=== PATIENT | male | born 1980 | race Caucasian/White ===

== ENCOUNTER 2017-01-17 20:44 | Emergency (ER) | payer OTHER ==
[~2017-01-17] VITALS: Ht 167.6 cm; Wt 98.7 kg
[2017-01-17] MEDS ORDERED: ASPIRIN 81 MG TABLET CHEW PO ONE (21:00)
[2017-01-17 21:31] LABS: BLOOD UREA NITROGEN 18 mg/dL (7-18)
[2017-01-17 21:36] LABS: IS PT STATUS REG ER OR PRE ER? YES
[2017-01-17] MEDS ORDERED: ASPIRIN 81 MG TABLET CHEW ONE (21:56)
[2017-01-17 22:10] VITALS: BP 115/64
== END 2017-01-17 22:12 | disposition home or self-care (01) ==
LOC: ED 22:06
DX: R07.89 Other chest pain (principal)
CPT/HCPCS: 36415; 71010; 80048; 82040; 84484; 85025; 93005; 99285

== ENCOUNTER 2017-04-17 10:18 | Emergency (ER) | payer OTHER ==
[~2017-04-17] VITALS: Ht 167.6 cm; Wt 100.0 kg
[2017-04-17] MEDS ORDERED: KETOROLAC 30 MG/1 ML IM ONE (11:30)
[2017-04-17] MEDS ORDERED: KETOROLAC 30 MG/1 ML ONE (11:36)
[2017-04-17 11:41] LABS: HEMATOCRIT 48.8 % (39.2-51.8); HEMOGLOBIN 16.5 g/dL (13.7-18.0); WHITE BLOOD COUNT 6.9 x10^3/uL (3.4-10)
[2017-04-17 11:49] LABS: ASPARTATE AMINO TRANSFERASE 77 U/L (15-37); BLOOD UREA NITROGEN 15 mg/dL (7-18)
[2017-04-17 13:38] VITALS: BP 103/49
== END 2017-04-17 13:41 | disposition home or self-care (01) ==
LOC: ED 10:49
DX: M51.26 Other intervertebral disc displacement, lumbar region (principal)
CPT/HCPCS: 36415; 72110; 74000; 80053; 81003; 85025; 96372; 99285; J1885

== ENCOUNTER 2017-11-09 18:17 | Emergency (ER) | payer OTHER ==
[~2017-11-09] VITALS: Ht 167.6 cm; Wt 96.8 kg
[2017-11-09 18:20] VITALS: BP 121/80
[2017-11-09] MEDS ORDERED: LIDOCAINE-MPF 1%, 5ML INFIL ONE (18:30)
== END 2017-11-09 19:06 | disposition home or self-care (01) ==
LOC: ED 18:25
DX: L02.31 Cutaneous abscess of buttock (principal); K64.4 Residual hemorrhoidal skin tags
CPT/HCPCS: 99283

== ENCOUNTER 2017-12-13 13:42 | Emergency (ER) | payer OTHER ==
[~2017-12-13] VITALS: Ht 170.2 cm; Wt 97.7 kg
[2017-12-13] MEDS ORDERED: SODIUM CHLORIDE FLUSH 10ML SYR IVF ONE (14:30)
[2017-12-13] MEDS ORDERED: MORPHINE SULFATE 4 MG/ML, 1ML IVPush ONE (14:30)
[2017-12-13] MEDS ORDERED: SODIUM CHLORIDE 0.9% 1,000ML IVBOLUS ONE (14:30)
[2017-12-13] MEDS ORDERED: MORPHINE SULFATE 4 MG/ML, 1ML ONE (14:32)
[2017-12-13 14:33] LABS: BASOPHILS # (AUTO) 0.03 x10^3/uL (0-0.1); BASOPHILS % (AUTO) 0 % (0-1); EOSINOPHILS # (AUTO) 0.16 x10^3/uL (0-0.4); EOSINOPHILS % (AUTO) 2 % (1-7); LYMPHOCYTES # (AUTO) 1.94 x10^3/uL (1-3.4); LYMPHOCYTES % (AUTO) 24 % (22-44); MD NO; MEAN CORPUSCULAR HEMOGLOBIN 28.1 pg (27.5-34.5); MEAN CORPUSCULAR HGB CONC 33.5 g/dL (33.2-36.2); MEAN CORPUSCULAR VOLUME 83.8 fL (81-97); MEAN PLATELET VOLUME 10.3 fL (7.4-10.4); MONOCYTES # (AUTO) 0.49 x10^3/uL (0.2-0.8); MONOCYTES % (AUTO) 6 % (2-9); NEUTROPHILS # (AUTO) 5.63 x10^3/uL (1.8-6.8); NEUTROPHILS % (AUTO) 68 % (42-75); PLATELET COUNT 238 x10^3/uL (130-400); RED BLOOD COUNT 5.44 x10^6/uL (4.38-5.82); RED CELL DISTRIBUTION WIDTH 13.1 % (9.4-14.8)
[2017-12-13 14:38] LABS: INTERNATIONAL NORMALIZED RATIO 1.1 (0.93-1.1); PROTHROMBIN TIME 11.3 Seconds (9.6-11.5)
[2017-12-13 14:40] LABS: ALBUMIN 3.8 g/dL (3.4-5.0); ANION GAP 4 mmol/L (5-15); CALCIUM 8.9 mg/dL (8.5-10.1); CHLORIDE 108 mmol/L (98-107); CREATININE 0.95 mg/dL (0.7-1.3)
[2017-12-13] MEDS ORDERED: KETOROLAC 30 MG/1 ML ONE (15:53)
[2017-12-13] MEDS ORDERED: KETOROLAC 30 MG/1 ML IVPush ONE (16:00)
[2017-12-13 16:48] VITALS: BP 112/67
== END 2017-12-13 16:51 | disposition home or self-care (01) ==
LOC: ED 16:45
DX: R51 Headache (principal); Z86.73 Personal history of transient ischemic attack (TIA), and cerebral infarction without residual deficits
CPT/HCPCS: 36415; 70450; 80048; 82040; 85025; 85610; 96374; 99285; J7030

== ENCOUNTER 2018-08-01 21:17 | Emergency (ER) | payer OTHER ==
[~2018-08-01] VITALS: Ht 170.2 cm; Wt 97.4 kg
[2018-08-01 21:28] VITALS: BP 110/69
--- NOTE | 2018-08-01 21:35 | NUR ---
pt presents to ed with c/o body aches, cough and bilateral ear ache x 2 days. pt a&o, resps even and unlabored. call light in reach. awaiting orders and dispo.
[2018-08-01] MEDS ORDERED: IBUPROFEN 800 MG TABLET PO STA (22:14)
[2018-08-01] MEDS ORDERED: IBUPROFEN 200 MG TABLET ONE (22:49)
--- NOTE | 2018-08-01 22:55 | NUR ---
pt medicated per emar, tolerated well. pt a&o, resps even and unlabored. pt given dc instructions, pt amb to dc desk with steady gait, nadn at dc.
== END 2018-08-01 22:56 | disposition home or self-care (01) ==
LOC: ED 22:46
DX: B34.9 Viral infection, unspecified (principal)
CPT/HCPCS: 99282

== ENCOUNTER 2019-01-27 12:41 | Outpatient (CLI) | payer OTHER | END 2019-01-27 23:59 | disposition home or self-care (01) | LOC: LAB 12:41 | PROVIDERS: ATTEND Nurse Practitioner Family | DX: R94.5 Abnormal results of liver function studies (principal) | CPT/HCPCS: 36415; 84450; 84460 ==

== ENCOUNTER 2019-07-23 12:12 | Emergency (ER) | payer OTHER ==
[~2019-07-23] VITALS: Ht 170.2 cm; Wt 100.2 kg
[2019-07-23 13:01] LABS: BASOPHILS # (AUTO) 0.02 x10^3/uL (0-0.1); BASOPHILS % (AUTO) 0 % (0-1); EOSINOPHILS # (AUTO) 0.02 x10^3/uL (0-0.4); EOSINOPHILS % (AUTO) 0 % (1-7); LYMPHOCYTES # (AUTO) 1.45 x10^3/uL (1-3.4); LYMPHOCYTES % (AUTO) 9 % (22-44); MD NO; MEAN CORPUSCULAR HGB CONC 33.3 g/dL (33.2-36.2); MEAN CORPUSCULAR VOLUME 84.3 fL (81-97); MEAN PLATELET VOLUME 9.3 fL (7.4-10.4); MONOCYTES # (AUTO) 0.75 x10^3/uL (0.2-0.8); MONOCYTES % (AUTO) 5 % (2-9); NEUTROPHILS # (AUTO) 13.66 x10^3/uL (1.8-6.8); NEUTROPHILS % (AUTO) 86 % (42-75); PLATELET COUNT 231 x10^3/uL (130-400); RED BLOOD COUNT 5.65 x10^6/uL (4.38-5.82); RED CELL DISTRIBUTION WIDTH 13.3 % (9.4-14.8)
[2019-07-23 13:12] LABS: ALANINE AMINOTRANSFERASE 146 U/L (12-78); ALBUMIN 4.2 g/dL (3.4-5.0); ANION GAP 7 mmol/L (5-15); CHLORIDE 102 mmol/L (98-107); CREATININE 1.06 mg/dL (0.7-1.3)
[2019-07-23 13:15] LABS: ALKALINE PHOSPHATASE 112 U/L (45-117); BILIRUBIN,TOTAL 1.1 mg/dL (0.2-1.0); TOTAL PROTEIN 8.8 g/dL (6.4-8.2)
--- NOTE | 2019-07-23 13:20 | NUR ---
THIS IS A 38 YO M W/ C/O URINARY FREQUENCY AND PAIN WELL TESTICULAR PAIN 11/25 SINCE SUNDAY. PT REPORTS LIFTING SOMETHING HEAVY AT HIS HOUSE WHEN IT FELT LIKE HE PULLED SOMETHING. DENIES ABD PAIN. VS STABLE. NADN. CALL LIGHT IN REACH. DENIES FURTHER NEEDS AT THIS TIME.
--- NOTE | 2019-07-23 13:21 | NUR ---
URINE COLLECTED AND SENT TO LAB.
--- NOTE | 2019-07-23 13:38 | NUR ---
PT TO RAD.
--- NOTE | 2019-07-23 14:06 | NUR ---
FOLLOW UP CALL PLACED TO LAB IN REGARDS TO DELAY IN URINE RESULTS. TECH STATES THAT URINE IS PROCESSING NOW. MD TO BE UPDATED.
[2019-07-23 14:09] LABS: CULTURE INDICATED? YES; MICROSCOPIC INDICATED
--- NOTE | 2019-07-23 14:16 | NUR ---
ALL TESTS RESULTED AT THIS TIME. PT IS UP FOR RECHECK.
[2019-07-23] MEDS ORDERED: SODIUM CHLORIDE FLUSH 10ML SYR IVF ONE (14:30)
--- NOTE | 2019-07-23 14:33 | NUR ---
PIV STARTED. PT UPDATED ON POC FOR CT.
--- NOTE | 2019-07-23 14:58 | NUR ---
PT TO RAD.
--- NOTE | 2019-07-23 15:03 | NUR ---
CT DELAYED DUE TO CODE NEURO IN DEPT. NO CT SCANNER AVAILABLE AT THIS TIME.
--- NOTE | 2019-07-23 15:17 | NUR ---
PT TO RAD.
[2019-07-23] MEDS ORDERED: OMNIPAQUE 350 MG/ML, 100ML BOTTLE ONE (15:32)
--- NOTE | 2019-07-23 15:41 | NUR ---
CT RESULTED. PT IS UP FOR RECHECK AT THIS TIME.
[2019-07-23] MEDS ORDERED: CEFTRIAXONE 1,000 MG IM ONE (16:00)
[2019-07-23] MEDS ORDERED: CEFTRIAXONE 1,000 MG ONE (16:17)
[2019-07-23] MEDS ORDERED: LIDOCAINE-MPF 1%, 5ML ONE (16:18)
[2019-07-23] MEDS ORDERED: ACETAMINOPHEN 500 MG TABLET ONE (16:27)
[2019-07-23 16:28] VITALS: BP 107/66
[2019-07-23] MEDS ORDERED: ACETAMINOPHEN 500 MG TABLET PO ONE (16:30)
--- NOTE | 2019-07-23 16:33 | NUR ---
ED PROVIDER UPDATED ON PTS VITALS. PT MEDICATED PER EMAR.
--- NOTE | 2019-07-23 16:43 | NUR ---
Patient given discharge instructions and they have confirmed that they understand the instructions. Patient ambulatory with steady gait.
== END 2019-07-23 16:44 ==
LOC: ED 13:27
DX: N30.00 Acute cystitis without hematuria (principal); Z90.89 Acquired absence of other organs
CPT/HCPCS: 36415; 74177; 76870; 80053; 81001; 85025; 87077; 87086; 87491; 87591; 96372; 99284; J0696; Q9967; 87186

== ENCOUNTER → 2020-11-23 | Outpatient (CLI) | payer OTHER ==
[2020-11-23 09:58] LABS: ALBUMIN 3.7 g/dL (3.4-5.0); ANION GAP 9 mmol/L (5-15); BASOPHILS % (AUTO) 1 % (0-1); CHLORIDE 102 mmol/L (98-107); EOSINOPHILS % (AUTO) 2 % (1-7); LYMPHOCYTES % (AUTO) 29 % (22-44); MEAN CORPUSCULAR HEMOGLOBIN 28.6 pg (27.5-34.5); MEAN CORPUSCULAR HGB CONC 34.4 g/dL (33.2-36.2); MEAN PLATELET VOLUME 10.2 fL (7.4-10.4); MONOCYTES % (AUTO) 6 % (2-9); NEUTROPHILS % (AUTO) 63 % (42-75); PLATELET COUNT 197 x10^3/uL (130-400); RED CELL DISTRIBUTION WIDTH 13.1 % (9.4-14.8)
[2020-11-23 10:11] LABS: ALANINE AMINOTRANSFERASE 202 U/L (12-78); ALKALINE PHOSPHATASE 190 U/L (45-117); BILIRUBIN,TOTAL 0.8 mg/dL (0.2-1.0); CHOL/HDL RATIO 11.2; CHOLESTEROL, TOTAL 303 mg/dL (140-239); CREATININE 0.83 mg/dL (0.7-1.3); HDL CHOL % 9 % (26-37); HDL CHOLESTEROL (DIRECT) 27 mg/dL (40-60); TOTAL PROTEIN 8.2 g/dL (6.4-8.2); TRIGLYCERIDES 688 mg/dL (50-200)
== END | disposition home or self-care (01) ==
LOC: LAB 09:30
PROVIDERS: ATTEND Family Medicine
DX: K76.9 Liver disease, unspecified (principal)
CPT/HCPCS: 36415; 80053; 80061; 83036; 84443; 85025